=== PATIENT | male | born 1950 | race Caucasian/White ===

== ENCOUNTER 2020-01-30 09:09 | Day surgery (SDC) | payer OTHER ==
[~2020-01-30] VITALS: Ht 182.9 cm; Wt 94.6 kg
[2020-01-30 09:36] VITALS: BP 171/92
[2020-01-30] MEDS ORDERED: FENTANYL PF 100 MCG/2ML ONE ×2 (10:56)
[2020-01-30] MEDS ORDERED: MIDAZOLAM 1 MG/ML, 5ML ONE (10:57)
[2020-01-30] MEDS ORDERED: NALOXONE 1 MG/ML, 2ML ONE (10:57)
[2020-01-30] MEDS ORDERED: FLUMAZENIL 0.1 MG/1 ML, 5ML ONE (10:57)
== END 2020-01-30 14:05 | disposition home or self-care (01) ==
LOC: OUT 09:09
PROVIDERS: ATTEND Surgery
DX: D38.1 Neoplasm of uncertain behavior of trachea, bronchus and lung (principal); D02.21 Carcinoma in situ of right bronchus and lung; J44.9 Chronic obstructive pulmonary disease, unspecified; I10 Essential (primary) hypertension; Z99.81 Dependence on supplemental oxygen
CPT/HCPCS: 32405; 71045; 77012; 88305; 99156; 99157; C2613; J2250; J3010; J2310